=== PATIENT | male | born 1995 | race Caucasian/White ===

== ENCOUNTER 2020-04-27 15:50 | Outpatient (REF) | payer OTHER, SELFPAY | END 2020-04-27 15:51 | disposition home or self-care (01) | LOC: HO.LAB 15:50 | PROVIDERS: Visit Provider Internal Medicine | DX: Z20.828 Contact with and (suspected) exposure to other viral communicable diseases (principal) | CPT/HCPCS: C9803; U0003 ==

== ENCOUNTER 2024-11-06 14:02 | Outpatient (REF) | payer OTHER, SELFPAY | END 2024-11-06 14:03 | disposition home or self-care (01) | LOC: CF 14:02 | DX: Z13.89 Encounter for screening for other disorder (principal) ==